=== PATIENT | male | born 1980 | race Caucasian/White ===

== ENCOUNTER → 2020-10-10 | Day surgery (SDC) | payer OTHER | END | disposition home or self-care (01) | LOC: FAS 06:33 | DX: K64.4 Residual hemorrhoidal skin tags (principal); K64.8 Other hemorrhoids; K60.2 Anal fissure, unspecified; Z80.0 Family history of malignant neoplasm of digestive organs; Z12.11 Encounter for screening for malignant neoplasm of colon; Z86.59 Personal history of other mental and behavioral disorders; Z87.19 Personal history of other diseases of the digestive system; Z82.49 Family history of ischemic heart disease and other diseases of the circulatory system; Z72.0 Tobacco use; Z20.822 Contact with and (suspected) exposure to COVID-19 | CPT/HCPCS: J0690; J1644; J2250; J2704; J3010; J7120 ==